=== PATIENT | female | born 1995 | race Caucasian/White ===

== ENCOUNTER 2023-03-26 16:21 | Emergency (ER) | payer OTHER ==
--- NOTE | 2023-03-26 17:36 | RAD REPORT ---
EXAM DESCRIPTION: RAD - Tib Fib Left - 03/26/2023 5:29 pm CLINICAL HISTORY: PAIN COMPARISON: <Comparisons> FINDINGS: No acute fracture or dislocation seen.
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
--- NOTE | 2023-03-26 17:43 | ER ---
Nurse's Notes [facility] Name: Lucretia Alva Age: 27 yrs Sex: Female : 1995 Arrival Date: 03/26/2023 Time: 16:21 Bed Treatment Private MD: Diagnosis: Pain in left knee Presentation: 03/26 16:47 Chief complaint: Patient states: left knee pain after falling on it yesterday. iw 16:47 Acuity: KEMAL 4 iw 18:04 Coronavirus screen: At this time, the client does not indicate any symptoms associated dd1 with coronavirus-19. Ebola Screen: No symptoms or risks identified at this time. Initial Sepsis Screen: Does the patient meet any 2 criteria? HR > 90 bpm. No. Patient's initial sepsis screen is negative. Does the patient have a suspected source of infection? No. Patient's initial sepsis screen is negative. Risk Assessment: Do you want to hurt yourself or someone else? Patient reports no desire to harm self or others. Onset of symptoms was March 26, 2023. 18:04 Method Of Arrival: Ambulatory dd1 Triage Assessment: 18:03 General: Appears in no apparent distress. Behavior is calm, cooperative. 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 - Social history:: Smoking status: Patient denies any tobacco usage or history of. Screenin:02 [facility] ED Fall Risk Assessment (Adult) Score/Fall Risk Level 0 - 2 = Low Risk dd1 Oriented to surroundings, Maintained a safe environment. Abuse screen: Denies threats or abuse. Denies injuries from another. Nutritional screening: No deficits noted. Tuberculosis screening: No symptoms or risk factors identified. Assessment: 18:02 Pain: Complains of pain in abdomen Pain does not radiate. dd1 Vital Signs: 16:47 BP 111 / 75; Pulse 105; Resp 16; Pulse Ox 98% ; Weight 86.18 kg; Height 5 ft. 6 in. ; iw Pain 8/10; 16:47 Body Mass Index 30.67 (86.18 kg, 167.64 cm) iw 16:47 Pain Scale: Adult ED Course: 16:23 Patient arrived in ED. mg5 16:25 Karen Huber FNP-C is [facility]. kb 16:25 Alvin Corona MD is Attending Physician. kb 16:47 Triage completed. iw 17:31 Tib Fib Left XRAY In Process Unspecified. EDMS 18:02 Darryl Quan, RN is Primary Nurse. dd1 18:02 Patient has correct armband on for positive identification. Bed in low position. Call dd1 light in reach. Provided Education on: DC INSTRUCTIONS GIVEN TO PATIENT AT BEDSIDE. 18:02 No provider procedures requiring assistance completed. Patient did not have IV access dd1 during this emergency room visit. 18:03 Arm band placed on. dd1 Administered Medications: No medications were administered Medication: 18:02 VIS not applicable for this client. dd1 Outcome: 17:42 Discharge ordered by MD. kb 18:02 Discharged to home ambulatory. dd1 18:02 Discharged to home 18:02 Condition: good 18:02 Discharge instructions given to patient, Instructed on discharge instructions, follow up and referral plans. Demonstrated understanding of instructions, follow-up care. 18:05 Patient left the ED. dd1 Signatures: Dispatcher [employer] EDKaren Euceda FNP-C FNP-Keya Crockett, RN RN serena Akhtar Aidee mg5 Darryl Quan, RN RN dd1
[2023-03-26 18:43] VITALS: BP 111/75; O2SAT 98
== END 2023-03-26 18:05 | disposition home or self-care (01) ==
LOC: ER 16:21
DX: O26.892 Other specified pregnancy related conditions, second trimester (principal); M25.562 Pain in left knee; Z3A.22 22 weeks gestation of pregnancy
CPT/HCPCS: 99282

== ENCOUNTER 2023-05-07 22:15 | Emergency (ER) | payer OTHER ==
[2023-05-07] MEDS ORDERED: ACETAMINOPHEN 500 MG TAB ONE (22:39)
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
[2023-05-08 00:15] VITALS: BP 114/75; TEMP 98.2; O2SAT 100
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
== END 2023-05-07 23:47 | disposition home or self-care (01) ==
LOC: ER 22:15
DX: O26.893 Other specified pregnancy related conditions, third trimester (principal); V59.40XA Driver of pick-up truck or van injured in collision with unspecified motor vehicles in traffic accident, initial encounter
CPT/HCPCS: 76705; 76815; 99283

== ENCOUNTER 2024-07-30 12:17 | Emergency (ER) | payer SELFPAY ==
[2024-07-30 13:43] LABS: Absolute Eosinophils 0.1 K/uL (0-0.5); Absolute Lymphocytes (CBC) 1.5 K/uL (0.7-4.9); Absolute Monocytes 0.4 K/uL (0.1-1.3); Absolute Neutrophil 2.8 K/uL (1.8-8.0); Basophils % 0.6 % (0-1.3); Eosinophils % 1.1 % (0-4.4); Hematocrit 32.7 % (36.0-45.0); Hemoglobin 9.9 g/dL (12.0-15.0); Lymphocytes % 31.6 % (15.3-44.8); MCH 21.1 pg (27.0-35.0); MCHC 30.3 g/dL (32.0-36.0); MCV 69.6 fL (80-100); MPV 9.7 fL (7.6-11.3); Monocytes % 8.1 % (3.3-12.3); Neutrophils % 58.6 % (41.7-73.7); Platelets 267 thou/uL (152-406); Red Cell Distribution Width 17.7 % (12.1-15.2)
[2024-07-30 13:57] LABS: Specific Gravity 1.014 (1.005-1.030)
[2024-07-30 14:00] LABS: Specific Gravity 1.014 (1.005-1.030); Sqamous Epithelial <5 /HPF (None Seen); Urine Bacteria 20-50 /HPF (<20); Urine Bilirubin NEGATIVE (Negative); Urine Blood Negative (Negative); Urine Clarity Turbid (Clear); Urine Color Light-Yellow (Yellow); Urine Culture Reflex Order NOT NEEDED; Urine Glucose NEGATIVE (Negative); Urine Ketones NEGATIVE (Negative); Urine Microscopic Reflex YN ORDER UMIC; Urine Mucus Slight /HPF (None Seen); Urine Nitrite NEGATIVE (Negative); Urine Protein NEGATIVE (Negative); Urine RBC <5 /HPF (None Seen); Urine Urobilinogen Normal (Normal); Urine WBC <5 /HPF (<5); Urine pH 6.5 (5.0-7.0)
[2024-07-30 14:01] LABS: ALT/SGPT < 14 U/L (13-56); AST/SGOT 15 U/L (15-37); Albumin/Globulin Ratio 1.1 (1.1-1.8); Alkaline Phosphatase 127 U/L (45-117); Anion Gap 6.6 mEq/L (5.0-15.0); BUN Blood Urea Nitrogen 8 mg/dL (7-18); Bicarbonate 28 mEq/L (21-32); Bilirubin Direct < 0.2 mg/dL (0-0.2); Bilirubin Indirect, Calculated 0.2 mg/dL (0.2-0.8); Bilirubin Total 0.4 mg/dL (0.2-1.0); Globulin 3.7 g/dL (2.3-3.5); Glomerular Filtration Rate 120 ml/min (=/>90); Glucose Level 84 mg/dL (74-106); NT PRO-BNP 59 pg/mL (<125); Potassium 3.6 mEq/L (3.5-5.1); Protein, Total 7.7 g/dL (6.4-8.2); Sodium Level 136 mEq/L (136-145); Troponin High Sensitivity < 3.0 pg/mL (<58.9)
[2024-07-30 14:09] LABS: SARS-CoV-2 Antigen CONTROL BLUE LINE VIS/BG OK; SARS-CoV-2 Antigen Rapid Res Negative (Negative)
[2024-07-30 14:10] LABS: Monoscreen NEG (NEG)
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
[2024-07-30] MEDS ORDERED: KETOROLAC 30 MG/ML INJ ONE (15:20)
[2024-07-30 15:35] LABS: Blood Morphology Comment NOTED (NOT SEEN); Hypochromasia 1+; Microcytosis 1+; Platelet Estimate ADEQ; White Blood Cell Scan OK (OK)
--- NOTE | 2024-07-30 15:43 | EDPHYS ---
Physician Documentation [facility] Name: Lakisha Alva Age: 29 yrs Sex: Female : 1995 Arrival Date: 07/30/2024 Time: 12:17 Bed 9 Private MD: ED Physician Will Vieira HPI: 07/30 13:05 This 29 yrs old Female presents to ER via Ambulatory with complaints of Chest Pain. cp 13:05 The patient or guardian reports chest pain that is located primarily in the anterior cp chest wall, bilaterally. 13:05 The pain radiates to right neck. Associated signs and symptoms: Pertinent positives: cp shortness of breath, Pertinent negatives: abdominal pain, cough, diaphoresis, dizziness, lower extremity pain, lower extremity swelling, near syncope, syncope, vomiting. 13:05 Duration: The patient or guardian reports a single episode, that is still ongoing, and cp unchanged, started 5 days ago. reports being seen at [facility] and having only EKG done. 13:05 Modifying factors: the symptoms are aggravated by deep breath. cp Historical: - Allergies: 13:24 Dilaudid; hb - Home Meds: 13:24 None [Active]; hb - PMHx: 13:24 None; hb - PSHx: 13:24 gastric sleeve; Cholecystectomy; hb 13:25 Tubal Ligation; hb - Immunization history:: Adult Immunizations up to date. - Infectious Disease History:: Denies. - Social history:: Smoking status: unknown. ROS: 13:10 Constitutional: Negative for body aches, chills, fever, poor PO intake, cp 13:10 Eyes: Negative for injury, pain, redness, and discharge, cp 13:10 ENT: Negative for drainage from ear(s), ear pain, sore throat, difficulty swallowing, difficulty handling secretions, 13:10 Cardiovascular: Positive for chest pain, Negative for edema, palpitations, 13:10 Respiratory: Positive for shortness of breath, Negative for cough, wheezing, 13:10 Abdomen/GI: Negative for abdominal pain, vomiting, diarrhea, constipation, 13:10 Neuro: Negative for altered mental status, dizziness, headache, weakness, 13:10 All other systems are negative, Exam: 13:15 Constitutional: The patient appears in no acute distress, alert, awake, cp non-diaphoretic, non-toxic, well developed, well nourished, obese, 13:15 Head/Face: Normocephalic, atraumatic. cp 13:15 Eyes: Periorbital structures: appear normal, Conjunctiva: normal, no exudate, no injection, Sclera: no appreciated abnormality, Lids and lashes: appear normal, bilaterally, 13:15 ENT: External ear(s): are unremarkable, Nose: is normal, Mouth: Lips: moist, Oral mucosa: pink and intact, moist, Posterior pharynx: Airway: no evidence of obstruction, patent, 13:15 Neck: ROM/movement: pain, is not appreciated, limited range of motion, is not appreciated, Lymph nodes: lymphadenopathy is appreciated, anterior cervical nodes, 13:15 Chest/axilla: Inspection: normal, 13:15 Cardiovascular: Rate: normal, Rhythm: regular, Edema: is not appreciated, 13:15 Respiratory: the patient does not display signs of respiratory distress, Respirations: normal, no use of accessory muscles, no retractions, labored breathing, is not present, Breath sounds: are clear throughout, no decreased breath sounds, no stridor, no wheezing, 13:15 Abdomen/GI: Inspection: abdomen appears normal, Palpation: abdomen is soft and non-tender, in all quadrants, 13:15 Back: pain, is absent, ROM is normal, 13:15 Neuro: Orientation: to person, place \T\ time. Mentation: is normal, Cerebellar function: is grossly normal, Motor: moves all fours, strength is normal, Sensation: is normal, 13:26 ECG was reviewed by the Attending Physician. cp Vital Signs: 13:23 BP 110 / 68; Pulse 66; Resp 16; Temp 97.1(TE); Pulse Ox 100% on R/A; Weight 101.15 kg; hb Height 5 ft. 6 in. ; Pain 7/10; 13:23 Body Mass Index 35.99 (101.15 kg, 167.64 cm) hb 13:23 Pain Scale: Adult hb MDM: 13:19 Medical Screening Exam initiated cp 14:00 Differential diagnosis: abnormal EKG, acute myocardial infarction, acute pericarditis, cp costochondritis, esophagitis, hiatal hernia, pleurisy, pneumonia, pneumothorax, pulmonary embolus. 15:41 Data reviewed: vital signs, nurses notes, lab test result(s), EKG, radiologic studies, cp plain films, and as a result, I will discharge patient. 15:41 I considered the following discharge prescriptions or medication management in the emergency department Medications were administered in the Emergency Department. See MAR. Independent interpretation of the following test(s) in the Emergency Department EKG: See my EKG interpretation above. Counseling: I had a detailed discussion with the patient and/or guardian regarding the historical points, exam findings, and any diagnostic results supporting the discharge/admit diagnosis, lab results, radiology results, the need for outpatient follow up, a family practitioner, to return to the emergency department if symptoms worsen or persist or if there are any questions or concerns that arise at home. Response to treatment: the patient's symptoms have mildly improved after treatment, and as a result, I will discharge patient. Special discussion: Based on the patient's history, exam, and Dx evaluation, there is no indication for emergent intervention or inpatient Tx. It is understood by the patient/guardian that if the Sx's persist or worsen they need to return immediately for re-evaluation. 07/30 13:04 Order name: Basic Metabolic Panel; Complete Time: 14:30 cp 07/30 13:04 Order name: CBC with Diff; Complete Time: 15:38 cp 07/30 14:30 Interpretation: Normal except: HGB 9.9; HCT 32.7; MCV 69.6; MCH 21.1; MCHC 30.3; RDW cp 17.7. 07/30 13:04 Order name: D-Dimer; Complete Time: 14:30 cp 07/30 13:04 Order name: LFT's; Complete Time: 14:30 cp 12 14:30 Interpretation: Normal except: ALK 127; GLOB 3.7. cp 07/30 13:04 Order name: Magnesium; Complete Time: 14:30 cp 07/30 13:04 Order name: NT PRO-BNP; Complete Time: 14:30 cp 12 13:04 Order name: Troponin HS; Complete Time: 14:30 cp 12 13:04 Order name: Influenza Screen (a \T\ B); Complete Time: 14:30 cp 12 13:04 Order name: SARS RAPID; Complete Time: 14:30 cp 12 13:04 Order name: [place] Screen Profile; Complete Time: 14:30 cp 12 13:04 Order name: Strep cp 07/30 13:04 Order name: Urinalysis w/ reflexes; Complete Time: 14:30 07/30 13:37 Order name: Test, Urine; Complete Time: 14:30 07/30 14:30 Order name: Throat Culture EDVT 07/30 15:35 Order name: CBC Smear Scan; Complete Time: 15:38 EDVT 07/30 13:29 Order name: XRAY Chest Pa And Lat (2 Views); Complete Time: 15:12 07/30 15:12 Interpretation: Report reviewed. 07/30 13:04 Order name: EKG; Complete Time: 13:05 07/30 13:04 Order name: Cardiac monitoring; Complete Time: 13:42 07/30 13:04 Order name: EKG - Nurse/Tech; Complete Time: 13:43 07/30 13:04 Order name: IV Saline Lock; Complete Time: 13:43 07/30 13:04 Order name: Labs collected and sent; Complete Time: 13:43 07/30 13:04 Order name: O2 Per Protocol; Complete Time: 13:43 07/30 13:04 Order name: O2 Sat Monitoring; Complete Time: 13:43 cp EC:26 Rate is 64 beats/min. Rhythm is regular. NV interval is normal. QRS interval is normal. cp QT interval is normal. T waves are Inverted in lead aVR. Interpreted by me. Reviewed by me. Administered Medications: 15:35 Drug: Ketorolac IVP 15 mg IVP once Route: IVP; Site: left antecubital; kc6 16:05 Follow up: Response: No adverse reaction kc6 Disposition: 19:22 Co-signature as Attending Physician, Will Vieira MD I reviewed the patient's care rn provided by the Advanced Practice Provider and agree with the diagnosis and treatment plan. Disposition Summary: 07/30/24 15:42 Discharge Ordered Notes: Location: Home cp Problem: new cp Symptoms: have improved cp Condition: Stable cp Diagnosis - Chest pain, unspecified cp - Iron deficiency anemia, unspecified cp Followup: cp - With: Private Physician - When: 7 - 10 days - Reason: Recheck today's complaints Discharge Instructions: - Discharge Summary Sheet cp - Anemia cp - Nonspecific Chest Pain, Adult cp - Iron-Rich Diet cp Forms: - Medication Reconciliation Form cp - Antibiotic Education cp - Prescription Opioid Use cp - Patient Portal Instructions cp - Leadership Thank You Letter cp Prescriptions: - Ferrous Sulfate 325 mg (65 mg Iron) Oral tablet - take 1 tablet ORAL route every 12 hours; 40 tablet; Refills: 0, Product cp Selection Permitted - Medrol ([place]) 4 mg Oral Tablets, Dose Pack - take 1 tablet ORAL route as directed - follow package instructions; 1 packet; cp Refills: 0, Product Selection Permitted Signatures: Dispatcher [employer] EDMS Will Vieira MD MD rn Page, Corey, PA PA cp Anna Castillo RN RN hb Campbell, Kaitlyn, RN RN kc6 Corrections: (The following items were deleted from the chart) 13:05 13:05 BASIC METABOLIC PANEL+C.LAB.BRZ ordered. EDMS EDMS 13:05 13:05 CBC+H.LAB.BRZ ordered. EDMS EDMS 13:05 13:05 D-DIMER+COAG.LAB.BRZ ordered. EDMS EDMS 13:05 13:05 HEPATIC FUNCTION+C.LAB.BRZ ordered. EDMS EDMS 13:05 13:05 MAGNESIUM+C.LAB.BRZ ordered. EDMS EDMS 13:05 13:05 PROBNP+C.LAB.BRZ ordered. EDMS EDMS 13:05 13:05 Troponin High Sensitivity+C.LAB.BRZ ordered. EDMS EDMS 13:05 13:05 Influenza Screen (A \T\ B)+BA.LAB.BRZ ordered. EDMS EDMS 13:05 13:05 SARS-COV-2 Antigen Rapid+I.LAB.BRZ ordered. EDMS EDMS 13:05 13:05 MONO SCREEN PROFILE+I.LAB.BRZ ordered. EDMS EDMS 13:05 13:05 Group A Streptococcus Rapid Sc+BA.LAB.BRZ ordered. EDMS EDMS 13:05 13:05 Urinalysis+U.LAB.BRZ ordered. EDMS EDMS 13:05 13:05 TEST, SERUM+SC.LAB.BRZ ordered. EDMS EDMS 13:25 13:24 PSHx: Tubal Ligation (gastric sleeve); hb hb 13:34 13:05 Chest Single View+RAD.RAD.BRZ ordered. EDMS EDMS 16:00 13:38 Test, Urine+UC.LAB.BRZ ordered. EDMS EDMS
--- NOTE | 2024-07-30 15:43 | ER ---
Nurse's Notes [facility] Name: Lakisha Alva Age: 29 yrs Sex: Female : 1995 Arrival Date: 07/30/2024 Time: 12:17 Bed 9 Private MD: Diagnosis: Chest pain, unspecified;Iron deficiency anemia, unspecified Presentation: 07/30 13:23 Chief complaint: Right sided chest pressure that radiates to right neck x 5 days. hb Coronavirus screen: At this time, the client does not indicate any symptoms associated with coronavirus-19. Ebola Screen: No symptoms or risks identified at this time. Initial Sepsis Screen: Does the patient meet any 2 criteria? No. Patient's initial sepsis screen is negative. Does the patient have a suspected source of infection? No. Patient's initial sepsis screen is negative. Risk Assessment: Do you want to hurt yourself or someone else? Patient reports no desire to harm self or others. Onset of symptoms was July 26, 2024. 13:23 Method Of Arrival: Ambulatory hb 13:23 Acuity: KEMAL 3 hb Historical: - Allergies: 13:24 Dilaudid; hb - Home Meds: 13:24 None [Active]; hb - PMHx: 13:24 None; hb - PSHx: 13:24 gastric sleeve; Cholecystectomy; hb 13:25 Tubal Ligation; hb - Immunization history:: Adult Immunizations up to date. - Infectious Disease History:: Denies. - Social history:: Smoking status: unknown. Screenin:39 [facility] ED Fall Risk Assessment (Adult) History of falling in the last 3 months, kc6 including since admission No falls in past 3 months (0 pts) Confusion or Disorientation No (0 pts) Intoxicated or Sedated No (0 pts) Impaired Gait No (0 pts) Mobility Assist Device Used No (0 pt) Altered Elimination No (0 pt) Score/Fall Risk Level 0 - 2 = Low Risk Oriented to surroundings, Maintained a safe environment. Abuse screen: Denies threats or abuse. Denies injuries from another. Nutritional screening: No deficits noted. Tuberculosis screening: No symptoms or risk factors identified. Assessment: 15:38 General: Appears in no apparent distress. comfortable, well groomed, well developed, kc6 Behavior is calm, cooperative, appropriate for age. Pain: Complains of pain in anterior aspect of right upper chest Pain radiates to right side of neck. Neuro: Level of Consciousness is awake, alert, obeys commands, Oriented to person, place, time, situation, Appropriate for age. Cardiovascular: Reports chest pain, Capillary refill < 3 seconds. Respiratory: Airway is patent Trachea midline Respiratory effort is even, unlabored, Respiratory pattern is regular, symmetrical. GI: No signs and/or symptoms were reported involving the gastrointestinal system. : No signs and/or symptoms were reported regarding the genitourinary system. EENT: No signs and/or symptoms were reported regarding the EENT system. Derm: No signs and/or symptoms reported regarding the dermatologic system. Skin is intact, is healthy with good turgor, Skin is pink, warm \T\ dry. Musculoskeletal: No signs and/or symptoms reported regarding the musculoskeletal system. Circulation, motion, and sensation intact. Capillary refill < 3 seconds, Range of motion: intact in all extremities. Vital Signs: 13:23 BP 110 / 68; Pulse 66; Resp 16; Temp 97.1(TE); Pulse Ox 100% on R/A; Weight 101.15 kg; hb Height 5 ft. 6 in. ; Pain 7/10; 13:23 Body Mass Index 35.99 (101.15 kg, 167.64 cm) hb 13:23 Pain Scale: Adult hb ED Course: 12:19 Patient arrived in ED. im 12:23 León Lucero PA is PHCP. cp 12:23 Will Vieira MD is Attending Physician. cp 13:19 EKG done, by ED staff, reviewed by León TEE. hb 13:24 Triage completed. hb 13:43 XRAY Chest Pa And Lat (2 Views) In Process Unspecified. EDMS 13:43 Basic Metabolic Panel Sent. bc6 13:43 CBC with Diff Sent. bc6 13:43 D-Dimer Sent. bc6 13:43 LFT's Sent. bc6 13:43 Magnesium Sent. bc6 13:43 NT PRO-BNP Sent. bc6 13:43 Troponin HS Sent. bc6 13:43 Strep Sent. bc6 13:43 Initial lab(s) drawn, by nm, sent to lab. Inserted saline lock: 20 gauge in left bc6 antecubital area, using aseptic technique. Blood collected. Flushed with 10 mL NS. 15:35 Maureen Bennett, RN is Primary Nurse. kc6 15:39 Patient maintains SpO2 saturation greater than 95% on room air. kc6 15:39 Patient has correct armband on for positive identification. Bed in low position. Call kc6 light in reach. Side rails up X 1. athletic monitor on. Pulse ox on. NIBP on. Door closed. Noise minimized. Lights dimmed. Pillow given. 15:40 Arm band placed on. kc6 16:05 No provider procedures requiring assistance completed. IV discontinued, intact, kc6 bleeding controlled, No redness/swelling at site. Pressure dressing applied. Administered Medications: 15:35 Drug: Ketorolac IVP 15 mg IVP once Route: IVP; Site: left antecubital; kc6 16:05 Follow up: Response: No adverse reaction 6 Medication: 16:05 VIS not applicable for this client. 6 Outcome: 15:42 Discharge ordered by MD. cp 16:05 Discharged to home ambulatory, [facility] 16:05 Condition: good 16:05 Discharge instructions given to patient, Instructed on discharge instructions, follow up and referral plans. medication usage, Demonstrated understanding of instructions, follow-up care, medications, Prescriptions given X 2, 16:06 Patient left the ED. [facility] Signatures: Dispatcher [employer] EDMS León Lucero PA PA cp Baxter, Heather, RN RN Maureen Bennett, INA RN [facility] Stacy Bryant [facility] Frances Bruno Corrections: (The following items were deleted from the chart) 13:25 13:24 PSHx: Tubal Ligation (gastric sleeve); hb hb 16:00 13:42 Test, Urine+UC.LAB.BRZ drawn and sent. [facility] EDTN
[2024-07-30 19:59] VITALS: BP 110/68; TEMP 97.1; O2SAT 100
== END 2024-07-30 16:06 | disposition home or self-care (01) ==
LOC: ER 12:17
DX: R07.9 Chest pain, unspecified (principal); D50.9 Iron deficiency anemia, unspecified; Z11.52 Encounter for screening for COVID-19
CPT/HCPCS: 36415; 71046; 80048; 80076; 81001; 81025; 83735; 83880; 84484; 85025; 85379; 86308; 87070; 87081; 87804; 87811; 96374; 99285

== ENCOUNTER 2024-10-18 08:37 | Emergency (ER) | payer OTHER ==
[2024-10-18] MEDS ORDERED: NA CHLORIDE 0.9% 1,000 ML ONE (08:53)
[2024-10-18 09:27] LABS: Absolute Eosinophils 0.1 K/uL (0-0.5); Absolute Lymphocytes (CBC) 1.3 K/uL (0.7-4.9); Absolute Monocytes 0.3 K/uL (0.1-1.3); Absolute Neutrophil 2.8 K/uL (1.8-8.0); Basophils % 0.5 % (0-1.3); Eosinophils % 1.3 % (0-4.4); Hematocrit 28.2 % (36.0-45.0); Lymphocytes % 29.2 % (15.3-44.8); MCH 21.8 pg (27.0-35.0); MCHC 31.8 g/dL (32.0-36.0); MCV 68.5 fL (80-100); MPV 9.1 fL (7.6-11.3); Monocytes % 6.9 % (3.3-12.3); Neutrophils % 62.1 % (41.7-73.7); Platelets 274 thou/uL (152-406); RBC Red Blood Cell Count 4.12 M/uL (3.86-4.86); Red Cell Distribution Width 17.5 % (12.1-15.2)
[2024-10-18 09:27] LABS: Specific Gravity 1.023 (1.005-1.030)
[2024-10-18 09:29] LABS: Specific Gravity 1.023 (1.005-1.030); Sqamous Epithelial <5 /HPF (None Seen); Urine Bacteria None Seen /HPF (<20); Urine Bilirubin NEGATIVE (Negative); Urine Blood Negative (Negative); Urine Clarity Clear (Clear); Urine Color Light-Yellow (Yellow); Urine Culture Reflex Order NOT NEEDED; Urine Glucose NEGATIVE (Negative); Urine Ketones NEGATIVE (Negative); Urine Microscopic Reflex YN ORDER UMIC; Urine Mucus Slight /HPF (None Seen); Urine Nitrite NEGATIVE (Negative); Urine Protein NEGATIVE (Negative); Urine RBC <5 /HPF (None Seen); Urine Urobilinogen Normal (Normal); Urine WBC <5 /HPF (<5)
[2024-10-18 09:43] LABS: Albumin 3.5 g/dL (3.4-5.0); Anion Gap 9.6 mEq/L (5.0-15.0); Bilirubin Total 0.3 mg/dL (0.2-1.0); Globulin 3.6 g/dL (2.3-3.5); Potassium 3.6 mEq/L (3.5-5.1); Protein, Total 7.1 g/dL (6.4-8.2)
--- NOTE | 2024-10-18 10:17 | RAD REPORT ---
EXAMINATION: CT Abdomen Pelvis W Contrast CLINICAL INDICATION: Female, 29 years old. ABD PAIN TECHNIQUE: CT abdomen and pelvis was performed, after the administration of IV contrast, as per [facility] protocol. Axial, sagittal and coronal reconstructions were obtained. One or more of the following dose reduction techniques were used: Automated exposure control, adjustment of the mA and k V according to patient size, and iterative reconstruction. Unless otherwise specified, incidental findings do not require dedicated imaging follow-up. COMPARISON: No prior exam. FINDINGS: LOWER CHEST: The visualized lung bases are clear. LIVER: Normal in size and contour. No focal lesion. BILIARY SYSTEM: Status post cholecystectomy. SPLEEN: Normal size. No focal lesion. PANCREAS: No mass, ductal dilation, or kylie-pancreatic fluid. ADRENALS: Normal; no mass. KIDNEYS: Normal size and contour. No hydronephrosis. URINARY BLADDER: Unremarkable. GASTROINTESTINAL TRACT: Sequelae of Debbie-en-Y gastric bypass. No evidence of free air, significant in tra-abdominal free fluid, bowel obstruction or abscess. APPENDIX: Normal appendix. LYMPH NODES: No lymphadenopathy. MUSCULOSKELETAL: No acute or suspicious osseous abnormality. ADDITIONAL FINDINGS: None. IMPRESSION: No acute or concerning abnormalities seen in the abdomen or pelvis. Postsurgical changes as above.
--- NOTE | 2024-10-18 10:25 | EDPHYS ---
Physician Documentation [facility] Name: Lakisha Alva Age: 29 yrs Sex: Female : 1995 Arrival Date: 10/18/2024 Time: 08:37 Bed 8 Private MD: ED Physician Facundo Whitten HPI: 10/18 08:51 This 29 yrs old Female presents to ER via Ambulatory with complaints of Abdominal Pain. sp3 08:51 29-year-old female with no past medical history and surgical history including gastric sp3 sleeve, cholecystectomy, bilateral tubal ligation presents to the ED with right-sided abdominal pain, vomiting and mild diarrhea over the last 24 to 48 hours. She denies any fever, headache, neck pain, chest pain, shortness of breath, back pain, [employer] symptoms, symptoms, rash, known sick contacts, travel history, or any other signs or symptoms on ROS at this time.. Historical: - Allergies: 08:50 Dilaudid (Vomiting); hb - Home Meds: 08:50 None [Active]; hb - PMHx: 08:50 None; hb - PSHx: 08:50 Cholecystectomy; gastric sleeve; tubal ligation; hb - Immunization history:: Adult Immunizations up to date. - Infectious Disease History:: Denies. - Social history:: Smoking status: . ROS: 08:53 Constitutional: Negative for fever, chills, and weight loss, Eyes: Negative for injury, sp3 pain, redness, and discharge, ENT: Negative for injury, pain, and discharge, Neck: Negative for injury, pain, and swelling, Cardiovascular: Negative for chest pain, palpitations, and edema, Respiratory: Negative for shortness of breath, cough, wheezing, and pleuritic chest pain, Back: Negative for injury and pain, : Negative for injury, bleeding, discharge, and swelling, MS/Extremity: Negative for injury and deformity, Skin: Negative for injury, rash, and discoloration, Neuro: Negative for headache, weakness, numbness, tingling, and seizure, Psych: Negative for depression, anxiety, suicide ideation, homicidal ideation, and hallucinations, Allergy/Immunology: Negative for hives, rash, and allergies, Endocrine: Negative for neck swelling, polydipsia, polyuria, polyphagia, and marked weight changes, Hematologic/Lymphatic: Negative for swollen nodes, abnormal bleeding, and unusual bruising, 08:53 All other systems are negative, Exam: 08:53 Constitutional: This is a well developed, well nourished patient who is awake, alert, sp3 and in no acute distress. Head/Face: Normocephalic, atraumatic. Eyes: Pupils equal round and reactive to light, extra-ocular motions intact. Lids and lashes normal. Conjunctiva and sclera are non-icteric and not injected. Cornea within normal limits. Periorbital areas with no swelling, redness, or edema. ENT: Nares patent. No nasal discharge, no septal abnormalities noted. External auditory canals are clear. Oropharynx with no redness, swelling, or masses, exudates, or evidence of obstruction, uvula midline. Mucous membranes moist. Neck: Trachea midline, no thyromegaly or masses palpated, and no cervical lymphadenopathy. Supple, full range of motion without nuchal rigidity, or vertebral point tenderness. No Meningismus. Chest/axilla: Normal chest wall appearance and motion. Nontender with no deformity. No lesions are appreciated. Cardiovascular: Regular rate and rhythm with a normal S1 and S2. No gallops, murmurs, or rubs. Normal PMI, no JVD. No pulse deficits. Respiratory: Lungs have equal breath sounds bilaterally, clear to auscultation and percussion. No rales, rhonchi or wheezes noted. No increased work of breathing, no retractions or nasal flaring. Back: No spinal tenderness. No costovertebral tenderness. Full range of motion. Skin: Warm, dry with normal turgor. Normal color with no rashes, no lesions, and no evidence of cellulitis. MS/ Extremity: Pulses equal, no cyanosis. Neurovascular intact. Full, normal range of motion. Neuro: Awake and alert, GCS 15, oriented to person, place, time, and situation. Cranial nerves II-XII grossly intact. Motor strength 5/5 in all extremities. Sensory grossly intact. Cerebellar exam normal. Normal gait. Psych: Awake, alert, with orientation to person, place and time. Behavior, mood, and affect are within normal limits. 08:53 Abdomen/GI: Pain to palpation right upper or right lower quadrants without peritoneal signs, rebound or guarding. No CVA tenderness noted., Vital Signs: 08:48 BP 126 / 71; Pulse 89; Resp 16; Temp 98.3(O); Pulse Ox 100% on R/A; Weight 102.06 kg; hb Height 5 ft. 3 in. ; Pain 8/10; 10:36 BP 129 / 63; Pulse 78; Resp 18; Temp 97.8; Pulse Ox 100% on R/A; ph 08:48 Body Mass Index 39.86 (102.06 kg, 160.02 cm) hb 08:48 Pain Scale: Adult hb MDM: 08:44 Medical Screening Exam initiated sp3 08:54 Data reviewed: vital signs, nurses notes, old medical records, lab test result(s), sp3 radiologic studies. ED course: 29-year-old female with right-sided abdominal pain in the setting of extensive past surgical history. No current active medical problems or medications. Differential diagnosis is broad and includes viral illness, gastroenteritis, colitis, adhesions, appendicitis, or other GI process. Clinically I am not highly suspicious of or [employer] W[employer]ER or vascular pathology. Patient not septic or in shock. Workup will include general labs, IV fluids and CT scan of the abdomen and pelvis. Patient declined any pain medications at this time and wants diagnostics only. Disposition pending workup and patient course.. 10/18 08:49 Order name: CBC with Diff sp3 10/18 08:49 Order name: CMP; Complete Time: 09:54 sp3 10/18 08:49 Order name: Lipase; Complete Time: 09:54 sp3 10/18 08:49 Order name: Test, Urine; Complete Time: 09:54 sp3 10/18 08:49 Order name: Urinalysis w/ reflexes; Complete Time: 09:54 sp3 10/18 10:07 Order name: Glucose, Ancillary Testing; Complete Time: 10:15 EDMS 10/18 08:49 Order name: CT Abd/Pelvis - IV Contrast Only; Complete Time: 10:23 sp3 10/18 08:49 Order name: IV Saline Lock; Complete Time: 09:34 sp3 10/18 08:49 Order name: Labs collected and sent; Complete Time: 09:34 sp3 10/18 08:49 Order name: NPO; Complete Time: 09:34 sp3 Administered Medications: 09:34 Drug: NS 0.9% IV 1000 ml IV at 1 bolus Per protocol; to be given as a bolus over 60 ph minutes Route: IV; Rate: 1 bolus; Site: right antecubital; 10:36 Follow up: Response: No adverse reaction; IV Status: Completed infusion; IV Intake: ph 1000ml Disposition Summary: 10/18/24 10:25 Discharge Ordered Notes: Location: Home sp3 Condition: Stable sp3 Diagnosis - Abdominal pain sp3 Followup: sp3 - With: Private Physician - When: Upon discharge from the Emergency Department - Reason: Continuance of care Discharge Instructions: - Discharge Summary Sheet sp3 - Abdominal Pain, Adult sp3 Forms: - Work release form ph - Medication Reconciliation Form sp3 - Antibiotic Education sp3 - Prescription Opioid Use sp3 - Patient Portal Instructions sp3 - Leadership Thank You Letter sp3 Prescriptions: - Tramadol 50 mg Oral Tablet - take 1 tablet ORAL route every 8 hours as needed; 12 tablet; Refills: 0, sp3 Product Selection Permitted - ondansetron 8 mg Oral Tablet,disintegrating - take 1 tablet ORAL route every 12 hours; 15 tablet; Refills: 0, Product sp3 Selection Permitted Signatures: Dispatcher [employer] Karli Quintanilla, RN RN Anna Castillo, RN RN Facundo Whitten MD MD sp3
--- NOTE | 2024-10-18 10:25 | ER ---
Nurse's Notes [facility] Name: Lakisha Alva Age: 29 yrs Sex: Female : 1995 Arrival Date: 10/18/2024 Time: 08:37 Bed 8 Private MD: Diagnosis: Abdominal pain Presentation: 10/18 08:48 Chief complaint: Nausea and right sided abdominal pain since last night, diarrhea hb today. Coronavirus screen: At this time, the client does not indicate any symptoms associated with coronavirus-19. Ebola Screen: No symptoms or risks identified at this time. Initial Sepsis Screen: Does the patient meet any 2 criteria? No. Patient's initial sepsis screen is negative. Does the patient have a suspected source of infection? No. Patient's initial sepsis screen is negative. Risk Assessment: Do you want to hurt yourself or someone else? Patient reports no desire to harm self or others. Onset of symptoms was October 17, 2024. 08:48 Method Of Arrival: Ambulatory hb 08:48 Acuity: KEMAL 3 hb Historical: - Allergies: 08:50 Dilaudid (Vomiting); hb - Home Meds: 08:50 None [Active]; hb - PMHx: 08:50 None; hb - PSHx: 08:50 Cholecystectomy; gastric sleeve; tubal ligation; hb - Immunization history:: Adult Immunizations up to date. - Infectious Disease History:: Denies. - Social history:: Smoking status: . Screenin:35 [facility] ED Fall Risk Assessment (Adult) History of falling in the last 3 months, ph including since admission No falls in past 3 months (0 pts) Confusion or Disorientation No (0 pts) Intoxicated or Sedated No (0 pts) Impaired Gait No (0 pts) Mobility Assist Device Used No (0 pt) Altered Elimination No (0 pt) Score/Fall Risk Level 0 - 2 = Low Risk Oriented to surroundings, Maintained a safe environment, Hourly rounding (assess needs \T\ fall precautionary measures) done. Abuse screen: Denies threats or abuse. Denies injuries from another. Nutritional screening: No deficits noted. Tuberculosis screening: No symptoms or risk factors identified. Assessment: 09:35 General: Appears in no apparent distress. comfortable, Behavior is calm, cooperative, ph appropriate for age. Pain: Complains of pain in right lower quadrant. Neuro: Level of Consciousness is awake, alert, obeys commands, Oriented to person, place, time, situation. Cardiovascular: Capillary refill < 3 seconds in bilateral fingers Patient's skin is warm and dry. Respiratory: Airway is patent Respiratory effort is even, unlabored. GI: Abdomen is non-distended, Bowel sounds present X 4 quads. Abd is soft X 4 quads Reports lower abdominal pain, nausea, vomiting. Derm: Skin is pink, warm \T\ dry. 10:36 Reassessment: Patient appears in no apparent distress at this time. Patient and/or ph family updated on plan of care and expected duration. Pain level reassessed. Patient is alert, oriented x 3, equal unlabored respirations, skin warm/dry/pink. Vital Signs: 08:48 BP 126 / 71; Pulse 89; Resp 16; Temp 98.3(O); Pulse Ox 100% on R/A; Weight 102.06 kg; hb Height 5 ft. 3 in. ; Pain 8/10; 10:36 BP 129 / 63; Pulse 78; Resp 18; Temp 97.8; Pulse Ox 100% on R/A; ph 08:48 Body Mass Index 39.86 (102.06 kg, 160.02 cm) hb 08:48 Pain Scale: Adult hb ED Course: 08:39 Patient arrived in ED. im 08:44 Facundo Whitten MD is Attending Physician. sp3 08:49 Triage completed. hb 08:50 Arm band placed on. hb 09:10 Missed attempt(s): 22 gauge in right antecubital area. Bleeding controlled, band aid ph applied, catheter tip intact. 09:15 Initial lab(s) drawn, by me, sent to lab. Urine collected: clean catch specimen. ph Inserted saline lock: 22 gauge in left antecubital area, using aseptic technique. Blood collected. Flushed with 10 mL NS. 09:25 CT Abd/Pelvis - IV Contrast Only In Process Unspecified. EDMS 09:34 Karli Forman, RN is Primary Nurse. ph 09:36 Patient has correct armband on for positive identification. Bed in low position. Call ph light in reach. Side rails up X 1. Pulse ox on. NIBP on. Door closed. Noise minimized. Warm blanket given. 09:36 No provider procedures requiring assistance completed. ph 10:37 IV discontinued, intact, bleeding controlled, No redness/swelling at site. Pressure ph dressing applied. Administered Medications: 09:34 Drug: NS 0.9% IV 1000 ml IV at 1 bolus Per protocol; to be given as a bolus over 60 ph minutes Route: IV; Rate: 1 bolus; Site: right antecubital; 10:36 Follow up: Response: No adverse reaction; IV Status: Completed infusion; IV Intake: ph 1000ml Medication: 09:36 VIS not applicable for this client. ph Intake: 10:36 IV: 1000ml; Total: 1000ml. ph Outcome: 10:25 Discharge ordered by MD. rojas 10:37 Discharged to home ambulatory, ph 10:37 Condition: good 10:37 Discharge instructions given to patient, Instructed on discharge instructions, follow up and referral plans. medication usage, Demonstrated understanding of instructions, follow-up care, medications, Prescriptions given X 2, 10:37 Patient left the ED. ph Signatures: Dispatcher [employer] EDMS Karli Forman RN RN Anna Castillo RN RN Facundo Whitten MD MD sp3 Frances Bruno Corrections: (The following items were deleted from the chart) 08:50 08:48 BP 126 / 71; Pulse 89bpm; Resp 16bpm; Pulse Ox 100% RA; Temp 98.3F Oral; Pain hb 8/10, Adult; hb
[2024-10-18 11:09] VITALS: O2SAT 100
[2024-10-18 11:11] VITALS: BP 129/63; TEMP 97.8
[2024-10-18 12:46] LABS: Blood Morphology Comment NOTED (NOT SEEN); Hypochromasia 1+; Microcytosis 1+; Platelet Estimate ADEQ; White Blood Cell Scan OK (OK)
== END 2024-10-18 10:37 | disposition home or self-care (01) ==
LOC: ER 08:37
DX: R10.31 Right lower quadrant pain (principal); R11.10 Vomiting, unspecified; Z98.84 Bariatric surgery status
CPT/HCPCS: 85025; 81001; 36415; 81025; 82947; 83690; 80053; 74177; 96360; 99284; Q9967; J7030